=== PATIENT | female | born 1950 | race Caucasian/White ===

== ENCOUNTER → 2018-06-09 | Outpatient (CLI) | payer OTHER ==
[~2018-06-09] VITALS: Ht 152.4 cm; Wt 72.6 kg
[~2018-06-09] MED LIST: ALENDRONATE SOD70 MG PO; AMLODIPINE BESY10 MG PO; ASPIR 8181 M1 PO; CRESTOR20 MG PO; LEVOXYL50 MCG PO; MAGOX 400400 MG PO; OCUVITE ADULT1 EAC1 PO; POTASSIUM99 M1 PO
[2018-06-09 11:29] VITALS: BP 166/76
[2018-06-09 11:29] LABS: HEMATOCRIT 40.7 % (37.0-47.0); HEMOGLOBIN 14.3 gm/dL (12.0-15.0); MCH 29.7 pg (26.0-34.0); MCV 84.8 fL (80.0-100.0); MPV 9.7 fl. (7.2-11.1); RBC 4.8 mil/uL (4.20-5.00); WBC 6.9 thou/uL (4.0-11.0)
[2018-06-09 11:31] LABS: APTT 30.8 Seconds (25.0-31.3); PROTIME 10.7 Seconds (9.20-11.50)
[2018-06-09 11:35] LABS: ALBUMIN 3.7 g/dL (3.4-5.0); ALKALINE PHOSPHATASE 69 U/L (46-116); ANION GAP 12 mmol/L (7-16); BUN 15 mg/dL (7-18); CALCIUM 8.7 mg/dL (8.5-10.1); CHLORIDE 105 mmol/L (98-107); CHOLESTEROL 176 mg/dL (<200); CO2 24 mmol/L (21-32); CREATININE 0.9 mg/dL (0.6-1.3); GLUCOSE 103 mg/dL (70-99); HDL CHOLESTEROL 60 mg/dL (>40); LDL CHOLESTEROL 87 mg/dL (<100); POTASSIUM 3.8 mmol/L (3.5-5.1); SGOT 26 U/L (15-37); SGPT 34 U/L (30-65); SODIUM 141 mmol/L (136-145); TC:HDL 2.9 Ratio (Not establshd); TOTAL BILIRUBIN 0.8 mg/dL (<0.1-1.0); TOTAL PROTEIN 7.2 g/dL (6.4-8.2); TRIGLYCERIDE 147 mg/dL (<150); VLDL 29 mg/dL (<40)
[2018-06-09 11:36] LABS: SERUM ASSESSMENT Clear
[2018-06-09 13:24] VITALS: BP 106/61
[2018-06-09 13:45] VITALS: BP 130/62
[2018-06-09 14:00] VITALS: BP 137/86
[2018-06-09 14:15] VITALS: BP 140/68
--- NOTE | 2018-06-09 14:48 | CARD ---
[address] [address] CARDIAC CATH REPORT Name: DENNYS MORENO Room: [facility]#: [id number] Admission: 06/09/18 Attend Phys: Jamil Franco MD Discharge: Date of : 54 Report #: [id number] THIS REPORT FOR: //name// APPROVED REPORT Study performed: 06/09/2018 12:04:20 Patient Details The patient is a 68 year-old female Event Personnel Quita Galvez RN Railway Traction Line Worker, Jamil Franco Meat Butcher, Sree Jon Monitor, Jonathan Jenkins (R) Scrub Procedure Narrative A Slender Glidesheath sheath was inserted into the . Coronary angiography was performed using coronary diagnostic catheters. The right coronary system was accessed and visualized with a DCR: [place] 4.0 5fr catheter. The left coronary system was accessed and visualized with a DCR: [place] 4.0 5fr catheter. Intraoperative Conscious Sedation Fentanyl 25 mcg Coronary Angiography The patient's coronary anatomy is right dominant. Diagnostic Cath Left Main normal LAD mid body 40% , tortuous vessel Diagonal 1 medium normal Circumflex proximal 20%, mid and distal small vessel, normal OM1 medium 20% diffuse disease, tortuous Right Coronary mid body 50 to 60% R PDA medium sized vessel ostial 80% stenosis, timi3 flow RPLV mid body 75% Left Ventriculography The left ventricle is normal in size with normal contractility. The left ventricular ejection fraction is estimated to be 60-65%. Left ventricular wall motion abnormalities are not present. There is 1+ mitral insufficiency. [address] [address] CARDIAC CATH REPORT Name: DENNYS MORENO Room: [facility]#: [id number] Admission: 06/09/18 Attend Phys: Jamil Franco MD Discharge: Date of : 54 Report #: [id number] Hemodynamics The aortic pressure is 115/60 mmHg with a mean of 84 mmHg. The left ventricular end diastolic pressure is 7 mmHg. Conclusion 1. 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 normal EF 4. medical therapy Recommendations Aggressive Medical Therapy <ELECTRONICALLY SIGNED> By: Jamil Franco MD, FACC 06/09/18 1448 1448 [id number] Franco MD, FACC /INF
[2018-06-09 15:00] VITALS: BP 138/74
--- NOTE | 2018-06-09 16:01 | EKG ---
[place] [address] ELECTROCARDIOGRAM REPORT Name: DENNYS MORENO Room: [facility]#: [id number] Admission: 06/09/18 Attend Phys: Jamil Franco MD Discharge: Date of : 54 Report #: [id number] THIS REPORT FOR: //name// [facility] Test Date: 2018-06-09 Test Time: 11:52:35 Pat Name: DENNYS MORENO Department: Room: Gender: F Administrative Support Manager: : 1950 Requested By: Jamil Franco Order Number: [id number] Reading MD: Jamil Franco Measurements Intervals [place] Rate: 73 P: 28 VT: 138 QRS: -1 QRSD: 77 T: 19 QT: 425 QTc: 469 Interpretive Statements Sinus rhythm Low voltage, extremity and precordial leads No previous ECG available for comparison Electronically Signed On 06-09-2018 16:01:15 CDT by Jamil Franco [email or web address] <ELECTRONICALLY SIGNED> By: Jamil Franco MD, [facility] 06/09/18 1601 1152 115 Jamil Franco MD, FACC /EPI
== END | disposition home or self-care (01) ==
LOC: M.CL 10:33
PROVIDERS: Internal Medicine Cardiovascular Disease
DX: I25.10 Atherosclerotic heart disease of native coronary artery without angina pectoris (principal); I10 Essential (primary) hypertension; E78.00 Pure hypercholesterolemia, unspecified; E03.9 Hypothyroidism, unspecified; Z98.890 Other specified postprocedural states; Z87.891 Personal history of nicotine dependence; Z79.899 Other long term (current) drug therapy; Z79.82 Long term (current) use of aspirin